=== PATIENT | male | born 1960 | race African-American/Black ===

== ENCOUNTER 2020-05-12 18:53 | Emergency (ER) | payer OTHER ==
[~2020-05-12] VITALS: Ht 182.9 cm; Wt 78.0 kg
[2020-05-12 18:53] VITALS: BP 168/67
--- NOTE | 2020-05-12 19:22 | PHYS DOC ---
Past History Past Medical History: Other Additional Past Medical Histor: TBI Past Medical History Dental caries Past Surgical History: No Surgical History Smoking: Cigarettes Alcohol Use: None Drug Use: Marijuana General Adult EDM: Chief Complaint: DENTAL PROBLEM HPI: HPI: "..I ve got a bad tooth ache.. ( 27).. I ve been to [facility].. they gave me a script... but I got no fucking money... " Patient is a 59 year old male who presents with complaints of dental pain in area of tooth 27. Patient has multiple areas of decay. Tooth 27 is rotted into the gum. No trismus. Patient does smoke tobacco and marijuana. Patient denies any history immunosuppression. No trismus. Patient has not filled prescription since her earlier visit at [facility] emergency department. Patient does not follow primary care. Instructed patient on follow-up at [facility] and dental [facility] for follow-up care. Review of Systems: Review of Systems: Constitutional: Denies fever or chills Eyes: Denies change in visual acuity HENT: Denies nasal congestion or sore throat Respiratory: Denies cough or shortness of breath Cardiovascular: Denies chest pain or edema GI: Denies abdominal pain, nausea, vomiting, bloody stools or diarrhea : Denies dysuria Musculoskeletal: Denies back pain or joint pain Integument: Denies rash Neurologic: Denies headache, focal weakness or sensory changes Endocrine: Denies polyuria or polydipsia Lymphatic: Denies swollen glands Psychiatric: Denies depression or anxiety Heart Score: Risk Factors: Risk Factors: DM, Current or recent (<one month) smoker, HTN, HLP, family history of CAD, obesity. Risk Scores: Score 0 - 3: 2.5% MACE over next 6 weeks - Discharge Home Score 4 - 6: 20.3% MACE over next 6 weeks - Admit for Clinical Observation Score 7 - 10: 72.7% MACE over next 6 weeks - Early Invasive Strategies Family History: Family History: Noncontributory Current Medications: Current Meds: See nursing for home meds Allergies: Allergies: Allergies Coded Allergies Type Severity Reaction Last Updated Verified No Known Drug Allergies 05/12/20 No Physical Exam: PE: Constitutional: Moderate acute distress, non-toxic appearance. [] HENT: Normocephalic, atraumatic, bilateral external ears normal, oropharynx moist, no oral exudates, nose normal. Multiple areas of dental decay gingivitis. Pain is localized area 27 Eyes: PERRLA, EOMI, conjunctiva normal, no discharge. [] Neck: Normal range of motion, no tenderness, supple, no stridor. [] Cardiovascular:Heart rate regular rhythm, no murmur [] Lungs & Thorax: Bilateral breath sounds equal at the apex with few scattered wheezes on auscultation [] Abdomen: Bowel sounds normal, soft, no tenderness, no masses, no pulsatile masses. [] Skin: Warm, dry, no erythema, no rash. [] Back: No tenderness, no CVA tenderness. [] Extremities: No tenderness, no cyanosis, no clubbing, ROM intact, no edema. [] Neurologic: Alert and oriented X 3, normal motor function, normal sensory function, no focal deficits noted. [] Psychologic: Affect anxious, judgement normal, mood angry Current Patient Data: Vital Signs: Vital Signs Date Time Temp Pulse Resp B/P (MAP) Pulse Ox O2 Delivery O2 Flow Rate FiO2 05/12/20 18:53 97.1 67 18 168/67 (100) 97 Room Air EKG: EKG: [] Radiology/Procedures: Radiology/Procedures: [] Course & Med Decision Making: Course & Med Decision Making Pertinent Labs and Imaging studies reviewed. (See chart for details) Rinse mouth with warm salt water or peroxide 4 times a day and after eating. Follow-up at [facility] or [facility] or dental school for care. Take meds as previously prescribed at [facility]. Tylenol and ibuprofen for pain. Must follow-up with dentist. Impression: 1. Dental caries 2. Dental pain tooth 27 3. Tobacco marijuana use [] Dragon Disclaimer: Dragon Disclaimer: This electronic medical record was generated, in whole or in part, using a voice recognition dictation system. Departure Departure: Disposition: 01 HOME/RESIDENCE PRIOR TO ADM Condition: STABLE Referrals: PCP,NO (PCP) Domo Disclaimer This chart was dictated in whole or in part using Voice Recognition software in a busy, high-work load, and often noisy Emergency Department environment. It may contain unintended and wholly unrecognized errors or omissions. ANGELA PONCE MD May 12, 2020 19:22
[2020-05-12] MEDS ORDERED: cefTRIAXone IM 1 GM VIAL IM ONE (19:30)
[2020-05-12] MEDS ORDERED: KETOROLAC 60 MG/2 ML VIAL. IM ONE (19:30)
== END 2020-05-12 20:26 | disposition home or self-care (01) ==
LOC: ER 18:53
DX: K02.9 Dental caries, unspecified (principal); K05.10 Chronic gingivitis, plaque induced; F17.210 Nicotine dependence, cigarettes, uncomplicated; F12.10 Cannabis abuse, uncomplicated
CPT/HCPCS: 96372; 99284; J0696; J1885

== ENCOUNTER 2020-07-25 11:35 | Emergency (ER) | payer MEDICAID, OTHER ==
[~2020-07-25] VITALS: Ht 182.9 cm; Wt 78.0 kg
[2020-07-25 11:45] VITALS: BP 128/82
[2020-07-25] MEDS ORDERED: AMOXICILLIN 250 MG CAPSULE PO ONE (12:00)
[2020-07-25] MEDS ORDERED: AMOX500T PO (12:02)
--- NOTE | 2020-07-25 12:03 | PHYS DOC ---
Past History Past Medical History: Other Additional Past Medical Histor: TBI Past Surgical History: No Surgical History Smoking: Cigarettes Alcohol Use: None Drug Use: Marijuana Adult General Chief Complaint Chief Complaint: DENTAL PROBLEM HPI HPI Patient is a 60-year-old male presenting for bottom right tooth dental infection. States this is an acute on chronic problem. He has been seen at our facility for this in the past and prescribed antibiotics. He does not have dental insurance and has had trouble getting this addressed definitively in outpatient setting. He is scheduled to see his primary care physician later this afternoon but stated he could not take the ongoing pain and fear of infection anymore prompting him to visit our ER this morning. Patient denies any fever but admits gingival swelling and soft tissue fullness around tooth in question which was consistent with prior infection requiring antibiotics. No focal side of abscess and/or known purulent drainage. Review of Systems Review of Systems Fourteen body systems of review of systems have been reviewed. See HPI for pertinent positives and negative responses, other scherer all other systems are negative, non-pertinent or non-contributory Allergies Allergies Allergies Coded Allergies Type Severity Reaction Last Updated Verified No Known Drug Allergies 05/12/20 No Physical Exam Physical Exam Constitutional: Well developed, well nourished, no acute distress, non-toxic appearance. HENT: Normocephalic, atraumatic, bilateral external ears normal, oropharynx moist, no oral exudates, nose normal. Uvula: without deviation or edema. Uvula midline. Soft palate: without swelling Sublingual: normal appearance/no brawny edema or tongue elevation Teeth and gums: No pus expression, no active oral bleeding. There is periapical swelling and gingival swelling to tooth #25 that appears chronically fractured in nature. Tonsils: without pus. Eyes: PERRLA, EOMI, conjunctiva normal, no discharge. Neck: Normal range of motion, no tenderness, supple, no stridor. Cardiovascular: Heart rate regular per monitor Lungs & Thorax: No respiratory distress or accessory muscle use, bilateral chest rise Abdomen: Abdomen soft, non-tender, bowel sounds present in all quadrants, no guarding or rebound, nonacute abdomen. Skin: Warm, dry, no erythema, no rash. Back: No tenderness, no CVA tenderness. Extremities: No tenderness, no cyanosis, no clubbing, ROM intact, no edema. Neurologic: Alert and oriented X 3, grossly normal motor & sensory function, no focal deficits noted. Psychologic: Affect normal, judgement normal, mood normal. Current Patient Data Vital Signs Vital Signs Date Time Temp Pulse Resp B/P (MAP) Pulse Ox O2 Delivery O2 Flow Rate FiO2 07/25/20 11:45 97.2 72 18 128/82 (97) 99 Room Air EKG EKG [] Radiology/Procedures Radiology/Procedures [] Heart Score Risk Factors: Risk Factors: DM, Current or recent (<one month) smoker, HTN, HLP, family history of CAD, obesity. Risk Scores: Risk Factors: DM, Current or recent (<one month) smoker, HTN, HLP, family h istory of CAD, obesity. Course & Med Decision Making Course & Med Decision Making Comprehensive history and physical exam significant for infected dental carry No obvious emergent and/or surgical pathology. No indication for further intervention while in ER setting I discussed role of antibiotic use to prevent further infection with patient, he has taken amoxicillin in the past and tolerated it well. 500 mg administered in ER and subsequent prescription written I discussed need for definitive treatment in outpatient setting with dentist. Patient cites not having dental insurance but I urged him to prioritize home funds so he can have this tooth extracted for definitive treatment Patient has follow-up with his primary care physician later this afternoon for his ongoing dental problems in addition to continuity of care, I advised him to keep this appointment as previously scheduled Discussed with the patient all findings and diagnostic testing as well as the need to follow up with PCP for further evaluation and treatment or return to the ED if any new or worsening symptoms. Strict return precautions were also discussed at length with good understanding by patient. Patient voiced understanding and agreement with the plan. Hemodynamically stable at time of disposition. Dragon Disclaimer Dragon Disclaimer This electronic medical record was generated, in whole or in part, using a voice recognition dictation system. Departure Departure: Impression: Primary Impression: Infected dental carries Disposition: 01 DC HOME SELF CARE/HOMELESS Condition: STABLE Referrals: ANASTASIYA RIBEIRO MD (PCP) Patient Instructions: Dental Caries Additional Instructions: You were seen for a dental infection. There was no indication for drainage or other invasive intervention today; however, you must take the entire course of antibiotics as prescribed and follow-up with dentist in upcoming 48 to 72 hours for repeat examination. You need to return to the ED if you develop worsening pain, fever, swelling, redness, or any other new or concerning symptoms. Scripts Amoxicillin (AMOXICILLIN) 500 Mg Tablet 1 TAB PO TID for DENTAL INFECTION for 7 Days, #21 TAB Prov: CARLOS CÁRDENAS DO 07/25/20 CARLOS CÁRDENAS DO Jul 25, 2020 12:03
== END 2020-07-25 12:26 | disposition home or self-care (01) ==
LOC: ER 11:35
DX: K02.9 Dental caries, unspecified (principal); K04.7 Periapical abscess without sinus; F17.210 Nicotine dependence, cigarettes, uncomplicated; Z87.820 Personal history of traumatic brain injury
CPT/HCPCS: 99283

== ENCOUNTER 2020-08-08 09:51 | Emergency (ER) | payer MEDICAID ==
[~2020-08-08] VITALS: Ht 182.9 cm; Wt 78.0 kg
[~2020-08-08 09:51] MED LIST: AMOX500T PO
[2020-08-08 09:56] VITALS: BP 112/85
[2020-08-08] MEDS ORDERED: FAMO-63 PO (10:20)
--- NOTE | 2020-08-08 10:21 | PHYS DOC ---
Past History Past Medical History: Other Additional Past Medical Histor: TBI Past Surgical History: No Surgical History Smoking: Cigarettes Alcohol Use: None Drug Use: Marijuana General Adult EDM: Chief Complaint: ABDOMINAL PAIN HPI: HPI: Patient is a [age] year old [sex] who presents with [] Review of Systems: Review of Systems: Constitutional: Denies fever or chills Eyes: Denies change in visual acuity HENT: Denies nasal congestion or sore throat Respiratory: Denies cough or shortness of breath Cardiovascular: Denies chest pain or edema GI: Denies abdominal pain, nausea, vomiting, bloody stools or diarrhea : Denies dysuria Musculoskeletal: Denies back pain or joint pain Integument: Denies rash Neurologic: Denies headache, focal weakness or sensory changes Endocrine: Denies polyuria or polydipsia Lymphatic: Denies swollen glands Psychiatric: Denies depression or anxiety Allergies: Allergies: Allergies Coded Allergies Type Severity Reaction Last Updated Verified No Known Drug Allergies 05/12/20 No Physical Exam: PE: Constitutional: Well developed, well nourished, no acute distress, non-toxic appearance. [] HENT: Normocephalic, atraumatic, bilateral external ears normal, oropharynx moist, no oral exudates, nose normal. [] Eyes: PERRLA, EOMI, conjunctiva normal, no discharge. [] Neck: Normal range of motion, no tenderness, supple, no stridor. [] Cardiovascular:Heart rate regular rhythm, no murmur [] Lungs & Thorax: Bilateral breath sounds clear to auscultation [] Abdomen: Bowel sounds normal, soft, no tenderness, no masses, no pulsatile masses. [] Skin: Warm, dry, no erythema, no rash. [] Back: No tenderness, no CVA tenderness. [] Extremities: No tenderness, no cyanosis, no clubbing, ROM intact, no edema. [] Neurologic: Alert and oriented X 3, normal motor function, normal sensory function, no focal deficits noted. [] Psychologic: Affect normal, judgement normal, mood normal. [] Current Patient Data: Vital Signs: Vital Signs Date Time Temp Pulse Resp B/P (MAP) Pulse Ox O2 Delivery O2 Flow Rate FiO2 08/08/20 09:56 97.9 89 16 112/85 (94) 96 Room Air EKG: EKG: [] Radiology/Procedures: Radiology/Procedures: [] Heart Score: Risk Factors: Risk Factors: DM, Current or recent (<one month) smoker, HTN, HLP, family history of CAD, obesity. Risk Scores: Score 0 - 3: 2.5% MACE over next 6 weeks - Discharge Home Score 4 - 6: 20.3% MACE over next 6 weeks - Admit for Clinical Observation Score 7 - 10: 72.7% MACE over next 6 weeks - Early Invasive Strategies Course & Med Decision Making: Course & Med Decision Making Pertinent Labs and Imaging studies reviewed. (See chart for details) [] Dragon Disclaimer: Dragon Disclaimer: This electronic medical record was generated, in whole or in part, using a voice recognition dictation system. Departure Departure: Impression: Primary Impression: Chronic abdominal pain Disposition: 01 DC HOME SELF CARE/HOMELESS Condition: STABLE Referrals: ANASTASIYA RIBEIRO MD (PCP) RACHEL LAUGHLIN MD Patient Instructions: Abdominal Pain, [id number], Gastritis, Adult, [id number] Scripts Famotidine (PEPCID) 20 Mg Tablet 1 TAB PO BID for Gastritis, #60 TAB Prov: PONCHO MA DO 08/08/20 PONCHO MA DO Aug 08, 2020 10:20
[2020-08-08] MEDS ORDERED: LIDO:MAALOX 1:1 20 ML SINGLE DOSE. PO ONE (10:30)
== END 2020-08-08 11:05 | disposition home or self-care (01) ==
LOC: ER 09:51
DX: G89.29 Other chronic pain (principal); R10.9 Unspecified abdominal pain; F17.210 Nicotine dependence, cigarettes, uncomplicated; Z87.820 Personal history of traumatic brain injury
CPT/HCPCS: 99283